=== PATIENT | male | born 1980 | race African-American/Black ===

== ENCOUNTER 2017-06-09 08:37 | Emergency (ER) | payer SELFPAY ==
[~2017-06-09] VITALS: Ht 182.9 cm; Wt 79.0 kg
[2017-06-09] MEDS ORDERED: IBUPROFEN 600MG TABLET PO ONE (09:45)
[2017-06-09 11:30] VITALS: BP 150/92
== END 2017-06-09 11:57 | disposition home or self-care (01) ==
LOC: ER 11:10
DX: M79.644 Pain in right finger(s) (principal); F17.200 Nicotine dependence, unspecified, uncomplicated; Z98.890 Other specified postprocedural states
CPT/HCPCS: 29130; 73130; 99284; Z7610

== ENCOUNTER 2019-09-27 11:52 | Emergency (ER) | payer SELFPAY ==
[~2019-09-27] VITALS: Ht 182.9 cm; Wt 82.0 kg
[2019-09-27] MEDS ORDERED: KETOROLAC 30MG/ML VIAL IV STA (12:14)
[2019-09-27] MEDS ORDERED: SODIUM CHLORIDE 0.9% 1,000 ML IV ONE (12:14)
[2019-09-27 12:41] LABS: BASOPHILS % 0.9 % (0.0-2.0); EOSINOPHILS % 0.1 % (0.0-5.0); HEMATOCRIT. 44.2 % (42.0-52.0); HEMOGLOBIN. 15.2 g/dL (14.0-18.0); LYMPHOCYTES % 23.9 % (20.0-50.0); MEAN CORPUSCULAR HEMOGLOBIN 35.6 pg (28.0-32.0); MEAN CORPUSCULAR VOLUME 103.5 fL (80.0-94.0); MEAN PLATELET VOLUME 6.9 fl (7.4-10.4); MONOCYTES % 5.5 % (2.0-8.0); NEUTROPHILS % 69.6 % (40.0-76.0); PLATELET 368 x1000/uL (130-400); RED BLOOD CELL COUNT 4.27 mill/uL (4.7-6.1); RED CELL DISTRIBUTION WIDTH 12.9 % (11.6-14.6)
[2019-09-27 12:47] LABS: CHLORIDE 106 mEq/L (98-107)
[2019-09-27 12:58] LABS: D-DIMER 0.45 mg/L FEU (<0.50); PARTIAL THROMBOPLASTIN TIME 27.1 sec (23.4-31.0)
[2019-09-27 13:06] LABS: ETHANOL BLOOD 273 mg/dL
[2019-09-27 13:49] LABS: *AMPHETAMINES SCREEN URINE NEGATIVE (NEGATIVE); *BARBITURATES SCREEN URINE NEGATIVE (NEGATIVE); *BENZODIAZEPINES SCREEN URINE NEGATIVE (NEGATIVE)
[2019-09-27 13:50] LABS: *COCAINE SCREEN URINE NEGATIVE (NEGATIVE); CANNABINOID URINE SCREEN NEGATIVE (NEGATIVE); METHADONE URINE SCREEN NEGATIVE (NEGATIVE); OPIATES URINE SCREEN NEGATIVE (NEGATIVE); PHENCYCLIDINE URINE SCREEN NEGATIVE (NEGATIVE)
[2019-09-27 17:20] VITALS: BP 150/90
== END 2019-09-27 17:26 | disposition home or self-care (01) ==
LOC: ER 12:05
DX: R07.89 Other chest pain (principal); F10.129 Alcohol abuse with intoxication, unspecified; F17.200 Nicotine dependence, unspecified, uncomplicated; Y90.8 Blood alcohol level of 240 mg/100 ml or more
CPT/HCPCS: 36415; 71045; 80053; 80305; 80320; 83880; 84484; 85025; 85379; 85610; 85730; 93005; 96374; 99284; J1885; J7030; G0480